=== PATIENT | female | born 2005 | race Caucasian/White ===

== ENCOUNTER 2024-10-23 06:47 | Inpatient (IN) | payer BC ==
[2024-10-23] MEDS ORDERED: Bupivacaine 0.25% 10 ML SDV ONE (07:00)
[2024-10-23] MEDS ORDERED: Lidocaine 1% 50 ML MDV INJECT PRN (07:05)
[2024-10-23] MEDS ORDERED: Acetaminophen 325 MG Tab PO PRN (07:05)
[2024-10-23] MEDS ORDERED: Ondansetron 4 MG/2 ML SDV IVPUSH PRN (07:05)
[2024-10-23] MEDS ORDERED: Sodium Chloride 0.9% 10 ML Syringe FLUSH PRN (07:05)
[2024-10-23] MEDS ORDERED: Misoprostol 25 MCG (1/4 of 100 MCG) Tab VAG PRN (07:05)
[2024-10-23] MEDS ORDERED: Nalbuphine 10 MG/1 ML Vial IVPUSH PRN (07:05)
[2024-10-23] MEDS ORDERED: Misoprostol 25 MCG (1/4 of 100 MCG) Tab VAG ONE (07:05)
[2024-10-23] MEDS ORDERED: Oxytocin/0.9 % Sodium Chloride 30 UNIT/500 ML BAG IV SCH (07:15)
[2024-10-23 07:32] LABS: BASOPHILS PERCENT AUTO 0.1 % (0.0-1.0); EOSINOPHILS ABSOLUTE AUTO 0.1 K/mm3 (0.0-0.4); EOSINOPHILS PERCENT AUTO 0.4 % (0.0-6.0); HEMATOCRIT 29.7 % (37.0-47.0); HEMOGLOBIN 8.4 gm/dl (12.0-16.0); IMMATURE GRAN ABSOLUTE AUTO 0.15 K/mm3 (0.00-0.05); LYMPHOCYTES ABSOLUTE AUTO 1.9 K/mm3 (1.0-4.8); LYMPHOCYTES PERCENT AUTO 12.8 % (24.0-44.0); MEAN CORPUSCULAR HEMOGLOBIN 18.8 pg (28.0-32.0); MEAN CORPUSCULAR HGB CONC 28.3 g/dl (32.0-36.0); MEAN CORPUSCULAR VOLUME 66.6 fl (83.0-99.0); MEAN PLATELET VOLUME 9.3 fl (9.4-12.3); MONOCYTES ABSOLUTE AUTO 0.9 K/mm3 (0.0-0.8); MONOCYTES PERCENT AUTO 6.3 % (0.0-8.0); NEUTROPHILS ABSOLUTE AUTO 11.9 K/mm3 (1.8-7.7); NEUTROPHILS PERCENT AUTO 79.4 % (41.0-71.0); NRBC ABSOLUTE 0.04 (0.00-0.02); NRBC PERCENT 0.3 % (0.0-0.2); PLATELET COUNT,PLT 313 K/mm3 (150-400); RED BLOOD CELL COUNT 4.46 M/mm3 (4.10-5.30); WHITE BLOOD CELL COUNT,WBC 15.04 K/mm3 (3.9-11.3)
[2024-10-23] MEDS: Lactated Ringers 1,000 ML IV SCH (07:47)
[2024-10-23 07:58] LABS: A/G RATIO 0.6 (1-2); ALBUMIN 2.6 g/dl (3.4-5.0); ANION GAP 14.8 (5-15); BILIRUBIN TOTAL 0.7 mg/dL (0.2-1.0); BUN/CREATININE RATIO 11.7 (14-18); CREATININE 0.6 mg/dL (0.55-1.02); EST CRCL DRUG DOSING (CG) 123.72 mL/min; POTASSIUM,K 3.8 mEq/L (3.5-5.1); PROTEIN TOTAL,TP 7.1 g/dl (6.4-8.2)
[2024-10-23] MEDS ORDERED: diphenhydrAMINE 50 MG/ML SDV IVPUSH PRN (08:42)
[2024-10-23] MEDS ORDERED: ePHEDrine 50 MG/ML SDV IVPUSH PRN (08:42)
[2024-10-23] MEDS: Bupivacaine/fentaNYL/NS 100 ML Bag EPIDUR PRN (08:53)
[2024-10-23] MEDS: fentaNYL 100 MCG/2 ML SDV EPIDUR PRN (08:53)
[2024-10-23] MEDS: Sodium Chloride 0.9% 10 ML Syringe FLUSH SCH (09:46)
[2024-10-23 10:22] LABS: APPEARANCE,URINE CLEAR (Clear); BILIRUBIN,URINE NEGATIVE (Negative); COLOR,URINE YELLOW (Yellow); GLUCOSE,URINE NEGATIVE (Negative); KETONES,URINE TRACE (Negative); LEUKOCYTE ESTERASE,URINE 3+ (Negative); NITRITE,URINE NEGATIVE (Negative); OCCULT BLOOD,URINE 3+ (Negative); PH,URINE 6.5 (5.0-8.0); PROTEIN,URINE 2+ (Negative); UROBILINOGEN,URINE 0.2 (0.2-1.0)
[2024-10-23 10:23] LABS: CREATININE,URINE RAND 195.8 mg/dL (30.0-125.0); PROTEIN CREATININE RATIO,URINE 364.1 mg/g (0-149); PROTEIN,URINE RANDOM 71.3 mg/dL (0.0-11.8)
[2024-10-23] MEDS: Oxytocin/0.9 % Sodium Chloride 30 UNIT/500 ML BAG IV SCH (15:41)
[2024-10-23] MEDS: Witch Hazel Medicated Pads 40/Jar TOP PRN (19:32)
[2024-10-23] MEDS: Benzocaine/Menthol 20%-0.5% Spray 78 GM Cannister TOP PRN (19:32)
[2024-10-23] MEDS: Ibuprofen 800 MG Tab PO SCH (22:03)
[2024-10-23] MEDS: Docusate Sodium 100 MG Cap PO SCH (22:04)
[2024-10-24 06:11] LABS: HEMATOCRIT 26.1 % (37.0-47.0); MEAN CORPUSCULAR HGB CONC 28.4 g/dl (32.0-36.0); MEAN CORPUSCULAR VOLUME 67.1 fl (83.0-99.0); MEAN PLATELET VOLUME 9.2 fl (9.4-12.3); NRBC ABSOLUTE 0.05 (0.00-0.02); NRBC PERCENT 0.3 % (0.0-0.2); PLATELET COUNT,PLT 245 K/mm3 (150-400); RED BLOOD CELL COUNT 3.89 M/mm3 (4.10-5.30); WHITE BLOOD CELL COUNT,WBC 19.98 K/mm3 (3.9-11.3)
[2024-10-24 06:19] LABS: HEMOGLOBIN 7.4 gm/dl (12.0-16.0)
[2024-10-24] MEDS: Ferrous Sulfate 324 MG Tab.EC PO SCH (09:10)
== END 2024-10-25 10:30 | disposition home or self-care (01) | DRG 807 ==
LOC: JD.OB 06:47 → OBSVTOIN 17:27 → JD.OB 17:28
PROVIDERS: ADMIT Obstetrics & Gynecology; ATTEND Obstetrics & Gynecology
PROC: 3E0R3BZ Introduction of Anesthetic Agent into Spinal Canal, Percutaneous Approach (ICD-10-PCS; principal; 2024-10-23)
PROC: 10907ZC Drainage of Amniotic Fluid, Therapeutic from Products of Conception, Via Natural or Artificial Opening (ICD-10-PCS; principal; 2024-10-23)
PROC: 0KQM0ZZ Repair Perineum Muscle, Open Approach (ICD-10-PCS; principal; 2024-10-23)
PROC: 10E0XZZ Delivery of Products of Conception, External Approach (ICD-10-PCS; principal; 2024-10-23)
DX: O99.02 Anemia complicating childbirth (principal); Z37.0 Single live birth; O99.344 Other mental disorders complicating childbirth; Z3A.39 39 weeks gestation of pregnancy; O70.1 Second degree perineal laceration during delivery; O16.4 Unspecified maternal hypertension, complicating childbirth
CPT/HCPCS: 01967; 36415; 51702; 59025; 59409; 80053; 81003; 82570; 84156; 85025; 85027; 86592; 86850; 86900; 86901; A9270-GY; J0665; J3010; J3490; J7120; J7999